=== PATIENT | male | born 1955 | race Caucasian/White ===

== ENCOUNTER 2017-02-13 07:43 | Day surgery (SDC) | payer BC ==
[~2017-02-13] VITALS: Ht 175.3 cm; Wt 92.9 kg
[~2017-02-13 07:43] MED LIST: BYSTOLIC20 MG PO; CENTRUM SILVER1 EAC1 PO; COMBIGAN O20 DROP/5 BOTH EYES; DIOVAN160 MG PO; KRILL OIL 3001 EACH PO; LIPITOR10 MG; OSTEO BI-FLEX1 EAC2 PO; PRAVACHOL20 MG PO; PRILOSEC20 MG PO
[2017-02-13 08:12] VITALS: BP 167/87
[2017-02-13] MEDS ORDERED: PERCOCET 5/31 TABLET PO (10:11)
[2017-02-13 11:25] VITALS: BP 142/85
[2017-02-13 12:43] VITALS: BP 148/87
== END 2017-02-13 12:45 | disposition home or self-care (01) ==
LOC: SDC 07:43
PROC: 0YU50JZ Supplement Right Inguinal Region with Synthetic Substitute, Open Approach (ICD-10-PCS; principal; 2017-02-13)
DX: K40.90 Unilateral inguinal hernia, without obstruction or gangrene, not specified as recurrent (principal); E78.5 Hyperlipidemia, unspecified; I10 Essential (primary) hypertension; Z86.2 Personal history of diseases of the blood and blood-forming organs and certain disorders involving the immune mechanism; Z79.899 Other long term (current) drug therapy; Z82.49 Family history of ischemic heart disease and other diseases of the circulatory system; Z83.3 Family history of diabetes mellitus; Z80.0 Family history of malignant neoplasm of digestive organs; Z80.8 Family history of malignant neoplasm of other organs or systems
CPT/HCPCS: C1781; J0690; J2250; J2405; J3010